=== PATIENT | male | born 1975 | race Hispanic/Latino ===

== ENCOUNTER → 2024-08-13 09:12 | Outpatient (CLI) | payer OTHER, SELFPAY | PROVIDERS: PCP Nurse Practitioner Family; Visit Provider Urology | DX: N35.912 Unspecified bulbous urethral stricture, male (principal); R31.0 Gross hematuria | CPT/HCPCS: 52000; 81002; 87077; 87086; 87186; 99213 ==

== ENCOUNTER → 2024-09-09 11:42 | Outpatient (CLI) | payer OTHER, SELFPAY | PROVIDERS: PCP Nurse Practitioner Family; Visit Provider Urology | DX: Z01.818 Encounter for other preprocedural examination (principal); R39.9 Unspecified symptoms and signs involving the genitourinary system; R31.0 Gross hematuria; N35.912 Unspecified bulbous urethral stricture, male; Z87.448 Personal history of other diseases of urinary system | CPT/HCPCS: 87077; 87086; 87186; 99214 ==

== ENCOUNTER 2024-09-18 06:12 | Day surgery (SDC) | payer OTHER, SELFPAY ==
[2024-09-10 06:43] VITALS: BMI 26.1
[2024-09-18] VITALS (7 sets, daily range): BP systolic 102–117; BP diastolic 66–81; PULSE 63–74; RESP 14–16; TEMP 36.3–36.8; O2SAT 96–99; BMI 26.1
[2024-09-18] MEDS: LACTATED RINGERS 1,000 ML 42 ML IV (07:05)
[2024-09-18] MEDS: ACETAMINOPHEN 325 MG TABLET 975 MG PO (07:05)
--- NOTE | 2024-09-18 07:27 | PM.PREOP ---
Pre-operative Note COVID-19 COVID-19 status: Not tested Interval Note History & Physical reviewed/Exam performed by Physician: Yes Changes to H&P: No
[2024-09-18] MEDS: levoFLOXacin 500 MG/100 ML PIGGYBACK 100 MG IV (07:55)
--- NOTE | 2024-09-18 08:16 | SUR.OPER ---
Lithotomy on padded OR bed, head on pillow, arms secured on padded arm boards at <90 degrees abduction. Legs secured in padded yellow fins stirrups.
--- NOTE | 2024-09-18 08:54 | P.OP_ITS ---
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 Surgeon: Justin Magdaleno Click Yes if Unassisted: Yes Anesthesia Type: General Operative Notes Findings: 10Fr bulbar urethral stricture, 1cm in total length, unremarkable cystoscopy Closure Type: not applicable Specimen(s): none sent Applied: catheter Estimated Blood Loss (mL): 10 Blood products transfused: none Procedure in detail: Patient was identified in the preoperative holding area and consent confirmed. He was then brought to the operating room where general anesthesia was induced. He was then placed in the low lithotomy position. He was then prepped and draped in the usual sterile fashion. A surgical timeout was conducted and all were in agreement. Access to the urethra was obtained with a 22Fr cystoscope. The aforementioned 10Fr bulbar urethral stricture was noted and easily cannulated using a 0.035 sensor tip ureteral guidewire. The cystoscope was removed and the afor ementioned stricture was serially dilated from 12Fr to 28Fr using Cross sounds. The cystoscope was then readvanced through the urethra and into the bladder. Complete cystoscope was then performed and no concerning masses or lesions were appreciated. Bilateral ureteral orifices were noted to be orthotopic in nature. He was noted to have unremarkable prostatic urethral anatomy. The cystoscope was then removed and the 26Fr resectoscope was advanced into his urethra, immediately distal to the aforementioned stricture. The working element with Mtz knife was then assembled and passed through the resectoscope and into the urethra. The aforementioned stricture was then incised at the 12 o'clock position. It was noted to be rather thick and firm, however, it was incised until healthy appearing tissue was appreciated. Hemostasis was evaluated and noted to be excellent at case end. The resectoscope was then removed and a 22Fr 3-way hematuria catheter was then advanced over the aforementioned ureteral guidewire and into the bladder. A total of 30cc of sterile water was utilized for balloon insufflation. Anesthesia was reversed, he was extubated in the OR and transferred to the PACU in stable condition for recovery. Complications: none Post-operative Condition: stable Disposition: PACU Plan for aftercare: Discharge home from PACU. Will return to Urology clinic on 24 September 2024 to have his hauser catheter removed.
== END 2024-09-18 09:40 | disposition home or self-care (01) ==
PROVIDERS: PCP Nurse Practitioner Family; Referring Provider Urology; Visit Provider Urology
PROC: 0TBB8ZZ Excision of Bladder, Via Natural or Artificial Opening Endoscopic (ICD-10-PCS; CPT 52276; principal; 2024-09-18 07:45)
PROC: 0TBD8ZZ Excision of Urethra, Via Natural or Artificial Opening Endoscopic (ICD-10-PCS; CPT 52000; 2024-09-18 07:45)
DX: N99.111 Postprocedural bulbous urethral stricture, male (principal); R33.9 Retention of urine, unspecified; R39.12 Poor urinary stream; R39.198 Other difficulties with micturition; R35.1 Nocturia
CPT/HCPCS: 52276; J1100; J1885; J1956; J2250; J2405; J2704; J3010

== ENCOUNTER → 2024-09-24 14:08 | Outpatient (CLI) | payer OTHER, SELFPAY | PROVIDERS: PCP Nurse Practitioner Family; Visit Provider Urology | DX: R31.0 Gross hematuria (principal) | CPT/HCPCS: 87086 ==